=== PATIENT | female | born 1985 | race Caucasian/White ===

== ENCOUNTER 2017-09-11 11:18 | Observation (INO) | payer OTHER, MEDICAID, SELFPAY ==
--- NOTE | 2017-09-11 12:06 | PM.OBTRLD ---
Visit Information Visit Information Date of evaluation: 09/11/17 Primary OB Provider: Carol Alvarez On-call OB Provider: Cherie Zimmer Reason for Evaluation: Yes non-stress test Vital Signs Vital Signs: Blood pressure 102/51, pulse is 76, temperature 36.5? PFSH Social History marital status: household members: spouse Smoking Status: Former smoker alcohol intake: never substance use type: does not use Review of Systems Review of Systems Patient complaining of headache and blurred vision Evaluation Evaluation Baseline heart rate: 150 Variability: Moderate (11-25) monitor accelerations: Present monitor decelerations: Absent Contraction Frequency (minutes): 0 Category of Tracing: I Diagnosis, Plan/Disposition Final Diagnosis (1) headache in third trimester: Current Visit: Yes Status: Acute Plan/Disposition Plan: Patient was sent to Labor and delivery for blood pressure check due to complaints of headache and blurry vision. Patient's blood pressure is not elevated. She was advised to take Tylenol and push fluids. She has an appointment scheduled tomorrow with Dr. Alvarez
== END 2017-09-11 12:00 | disposition home or self-care (01) ==
LOC: LABOR 11:22
PROVIDERS: Admitting Provider Family Medicine; PCP Family Medicine; Visit Provider Family Medicine
DX: Z34.83 Encounter for supervision of other normal pregnancy, third trimester (principal); Z3A.36 36 weeks gestation of pregnancy; R51 Headache
CPT/HCPCS: 59025; G0378; G0379

== ENCOUNTER → 2017-09-12 14:51 | Outpatient (CLI) | payer OTHER, MEDICAID, SELFPAY ==
[2017-09-12 18:14] LABS: Strep Grp A by PCR Rapid Negative
== END ==
PROVIDERS: PCP Family Medicine; Visit Provider Family Medicine
DX: Z3A.36 36 weeks gestation of pregnancy (principal)
CPT/HCPCS: 87651

== ENCOUNTER → 2017-09-15 16:57 | Outpatient (CLI) | payer OTHER, MEDICAID, SELFPAY | END | disposition home or self-care (01) | LOC: LABOR 17:05 → OB 09-16 11:40 | PROVIDERS: PCP Family Medicine; Visit Provider Family Medicine | DX: O36.8130 Decreased fetal movements, third trimester, not applicable or unspecified (principal); Z3A.37 37 weeks gestation of pregnancy | CPT/HCPCS: 59025; G0378; G0379 ==

== ENCOUNTER → 2017-09-18 23:40 | Outpatient (CLI) | payer OTHER, MEDICAID, SELFPAY | END | disposition home or self-care (01) | LOC: LABOR 23:48 → OB 09-19 10:24 | PROVIDERS: PCP Family Medicine; Visit Provider Family Medicine | DX: Z34.83 Encounter for supervision of other normal pregnancy, third trimester (principal); Z3A.37 37 weeks gestation of pregnancy | CPT/HCPCS: 59025; G0378; G0379 ==

== ENCOUNTER 2017-09-26 01:55 | Inpatient (IN) | payer OTHER, MEDICAID, SELFPAY ==
[2017-09-26] VITALS (11 sets, daily range): BP systolic 123–136; BP diastolic 72–84; PULSE 101–114; RESP 14–22; TEMP 37.7; O2SAT 95–96
[2017-09-26] MEDS: LACTATED RINGERS 1,000 ML 100 ML IV ×2 (04:51→15:00)
[2017-09-26 05:04] LABS: Add Manual Diff / Slide Review NO; Basophils Percent Auto 0.4 % (0-2); Eosinophils Percent Auto 0.6 % (2-4); Hematocrit 39.7 % (36-46); Hemoglobin 13.5 g/dL (12.0-16.0); Lymphocytes Percent Auto 26.5 % (25-40); Mean Corpuscular HGB Conc 33.9 % (30-36); Mean Corpuscular Hemoglobin 30.3 PG (26-34); Mean Corpuscular Volume 89.6 fL (80-100); Monocytes Percent Auto 7.5 % (3-14); Neutrophils Absolute Auto 7200 /uL (3000-5900); Platelet Count 187 X10^3/uL (150-400); Red Blood Cell Count 4.44 X10^6/uL (4.0-5.2); Red Cell Distribution Width 13.1 % (11.6-14.8); White Blood Cell Count 11.1 X10^3/uL (4.5-11.0)
--- NOTE | 2017-09-26 07:51 | PM.OBHP.1 ---
OB HPI Date/Time Date of admission: 09/26/17 Date Patient Seen: 09/26/17 Time Patient Seen: 07:14 History of Present Illness Chief complaint: LABOR & DELIVERY : 7 Para: 2 Estimated Date of Delivery: 10/06/17 Estimated Gestational Age (weeks): 38w4d Narrative: Candelaria Simental is a 32 year old female, , admitted with ROM at 1 AM on 09/26/17. Received regular care. Saw MFM during due to prior with severe brain malformation. No concerns this . History of Present care: good care Dating criteria: based on 1st trimester US only Ultrasounds: normal 1st trimester US Obstetrical complications: none Medical complications: none Preadmission Labs Blood type: A (+) positive -: Antibody screen: negative, GBS status: negative, HBsAG: negative, HIV: negative and RPR/VDLR: negative -: Chlamydia screen: not detected and Gonorrhea screen: not detected -: Rubella: immune and Varicella: immune HCT: 36.8 HCAB: negative Integrated screen: Quad screen: Normal 1 hr GTT: 119 Prior (ies) History: 2003 TAB 10/08/17 , 38 wks, male, 7#10oz 2006 SAB 10/27/08 , 25 wks, male, severe brain malformation, 12/31/09 37 wks, male, 7#7oz Evaluation Evaluation Baseline heart rate: 140 Variability: Moderate (11-25) monitor accelerations: Present monitor decelerations: Absent Contraction Frequency (minutes): 4 Category of Tracing: I Cervical dilation (cm): 9 Cervical effacement (%): 100 station: 0 Laboratory results: Laboratory Tests 09/26/17 09/26/17 03:30 03:30 WBC 11.1 H RBC 4.44 Hgb 13.5 Hct 39.7 MCV 89.6 MCH 30.3 MCHC 33.9 RDW 13.1 Plt Count 187 Neut % (Auto) 65.0 Lymph % (Auto) 26.5 [place] % (Auto) 7.5 Eos % (Auto) 0.6 L Baso % (Auto) 0.4 Neut # (Auto) 7200 H Blood Type A Positive Antibody Screen Negative Non-invasive Membranes Rupture Test: positive PFS Medical History Chicken pox (Acute) Surgical History S/P appendectomy (Resolved) Social History marital status: household members: spouse Smoking Status: Former smoker alcohol intake: never substance use type: does not use Meds Home Medications Medication Instructions Recorded Confirmed Type 1 tab PO DAILY 09/26/17 09/26/17 History Zyrtec 10 mg PO DAILY 09/26/17 09/26/17 History ranitidine HCl 75 mg PO DAILY 09/26/17 09/26/17 History Allergies Allergy/AdvReac Type Severity Reaction Status Date / Time hydrocodone Allergy Intermediate Vomiting Verified 09/26/17 03:36 Review of Systems Review of Systems All systems reviewed & are unremarkable except as noted in HPI and below Exam Const General: cooperative and healthy appearing HENKY Head: normal to inspection Ears: hearing grossly normal bilaterally Nose: external nose normal Face and sinus: normal facial exam Mouth: oral mucosae normal Teeth and gingiva: dentition normal Throat: posterior oropharynx normal Eyes General: appearance normal, both eyes and all related structures Neck Neck: normal visual inspection Thyroid: thyroid normal Resp Effort & Inspection: normal respiratory effort Auscultation: clear to auscultation bilaterally Cardio Rate: regular rate Rhythm: regular rhythm Heart Sounds: no murmurs Estimated Weight (lbs): 8 Amniotic Fluid: clear Extrem General: normal to inspection and edema (1+ bilaterally) Objective Labs Result Diagrams: 09/26/17 03:30 Labs: Laboratory Results - last 24 hr 09/26/17 09/26/17 03:30 03:30 WBC 11.1 H RBC 4.44 Hgb 13.5 Hct 39.7 MCV 89.6 MCH 30.3 MCHC 33.9 RDW 13.1 Plt Count 187 Neut % (Auto) 65.0 Lymph % (Auto) 26.5 [place] % (Auto) 7.5 Eos % (Auto) 0.6 L Baso % (Auto) 0.4 Neut # (Auto) 7200 H Blood Type A Positive Antibody Screen Negative Assessment and Plan (1) 38 weeks gestation of : Current visit: Yes Status: Acute Plan: Plan: 32 year old at 38+4 weeks with ROM in active labor. GBS negative. Anticipate vaginal delivery Epidural pain control
--- NOTE | 2017-09-26 11:26 | PM.OBPNLAB ---
Date/Time Date Patient Seen: 09/26/17 Time Patient Seen: 11:26 Pain Control Pain control: tolerating well Pelvic Exam Dilation (cm): 9 Effacement (%): 100 station: +1 Amniotic membrane status: Ruptured Contractions Contraction frequency (min): 2 Status status: Category ll Heart Rate Baseline: 150 Monitor Accelerations: Present Monitor Decelerations: Variable Monitor Variability: Minimal Assessment and Plan Assessment: active labor Plan: Comments: Patient pushed for 1.5 hours with little descent. Bedside ultrasound performed to check position and appeared left occiput transverse. Epidural re-dosed for patient comfort and attempts made at pushing but with no descent. Dr. Zimmer was consulted and attempted vacuum extraction. There was no descent after three attempts with the vacuum so the decision was made for primary low transverse section. Risks discussed with patient including bleeding, infection, potential injury to surrounding organs. Consent signed in chart. Will give cefazolin 2 grams prior to surgery.
--- NOTE | 2017-09-26 11:51 | PM.CN ---
History of Present Illness Date Patient Seen: 09/26/17 Time Patient Seen: 11:31 Chief complaint: LABOR & DELIVERY Reason for consult: Failure to descend with pushing Requesting provider: Carol Alvarez Narrative: Was asked to consult for a multiparous patient who has been complete since 08:30 this morning. She does not have good descent with pushing. She has an epidural catheter that is in place. [facility] Medical History Chicken pox (Acute) Surgical History S/P appendectomy (Resolved) Social History marital status: household members: spouse Smoking Status: Former smoker alcohol intake: never substance use type: does not use Meds Home Medications Medication Instructions Recorded Confirmed Type 1 tab PO DAILY 09/26/17 09/26/17 History Zyrtec 10 mg PO DAILY 09/26/17 09/26/17 History ranitidine HCl 75 mg PO DAILY 09/26/17 09/26/17 History Allergies Allergy/AdvReac Type Severity Reaction Status Date / Time hydrocodone Allergy Intermediate Vomiting Verified 09/26/17 03:36 Exam Narrative Exam Narrative: Patient is completely dilated with asynclitic, transverse position of the head. heart tones reassuring category 1 Discussed options with the patient and decision was made to try a with a vacuum extraction. Vacuum was placed for total 3 pushes with no significant change in the position. Decision was made to proceed with section. Objective Labs Result Diagrams: 09/26/17 03:30 Labs: Laboratory Results - last 24 hr 09/26/17 09/26/17 03:30 03:30 WBC 11.1 H RBC 4.44 Hgb 13.5 Hct 39.7 MCV 89.6 MCH 30.3 MCHC 33.9 RDW 13.1 Plt Count 187 Neut % (Auto) 65.0 Lymph % (Auto) 26.5 [place] % (Auto) 7.5 Eos % (Auto) 0.6 L Baso % (Auto) 0.4 Neut # (Auto) 7200 H Blood Type A Positive Antibody Screen Negative Assessment & Plan (1) Failure of descent in labor, delivered, current hospitalization: Current visit: Yes Status: Acute (2) 38 weeks gestation of : Current visit: Yes Status: Acute Plan: Assessment/Plan Narrative: Failure to descend with an ability to bring the head down with forceps plan is to proceed with section
[2017-09-26] MEDS: CEFAZOLIN 2 GM/100 ML FROZ.PIGGY IV (11:55)
--- NOTE | 2017-09-26 12:29 | SUR.OPER ---
Supine on Padded OR bed, head on pillow, safety belt at thigh, arms secured on padded arm boards at <90 degrees abduction. Bump under right buttock. Legs uncrossed with pillow under knees, gel pad to heels, tape over blanket to lower legs.
--- NOTE | 2017-09-26 12:31 | SUR.OPER ---
PLACENTA AND CORD BLOOD TUBES X 2 SENT WITH OB KARI. Alex DOMINGUEZ.RN
--- NOTE | 2017-09-26 12:44 | SUR.OPER ---
VIABLE MALE INFANT BORN AT 1234
[2017-09-26] MEDS: ACETAMINOPHEN IV 1,000 MG/100 ML VIAL 400 MG IV (13:08)
[2017-09-26] MEDS: HYDROMORPHONE 2 MG INJ 0.5 MG IV ×4 (13:35→14:05)
--- NOTE | 2017-09-26 13:41 | PM.OP.1 ---
Operative Date/Time/Diagnoses Date of procedure: 09/26/17 Time of procedure: 12:30 Pre-op diagnosis: 38 weeks of Arrest of second stage of labor Post-op diagnosis: same Procedure & Clinicians Procedure: Primary low-transverse section Same procedure as scheduled: Yes Indications: Arrest of second stage of labor Thirty-eight weeks of Surgeon: Carol Alvarez Camp Advisor: Cherie Zimmer Anesthesia Type: General and Spinal (Epidural was found to be inadequate so spinal performed, spinal was not adequate during surgery so patient given general anesthesia) Operative Notes Findings: Live male Normal uterus, fallopian tubes and ovaries Closure Type: primary Specimen(s): other (Cord blood) Implants & Drains: Nguyen to continuous drainage Estimated Blood Loss (mL): 1,000 Procedure in detail: The patient was taken to the operating room. Epidural was felt to be inadequate so she was placed in the seated position and spinal anesthesia administered. She was then placed in the dorsal supine position with a leftward tilt. She was prepped and draped in the usual sterile fashion. A timeout was performed. After spinal analgesia was found to be adequate, a Pfannenstiel skin incision was made 2 finger breadths above the pubic symphysis and carried through to the underlying layer fascia. The fascia was nicked in the midline and the incision extended bilaterally with the Novak scissors. The superior aspect of the fascial incision was grasped with Francesco clamps, elevated, and the underlying rectus muscles dissected off sharply and bluntly. Attention was then turned to the inferior aspect of this incision which in a similar fashion was grasped with a Francesco clamps, elevated, and the underlying rectus muscles dissected off sharply and bluntly. The rectus muscles were in the midline. The peritoneum was identified, grasped between 2 hemostats, and entered sharply with the Metzenbaum scissors. This incision was extended superiorly and inferiorly with good visualization of the bladder. The bladder blade was inserted. The vesicouterine peritoneum was identified, grasped with the pickup, and entered sharply with the Metzenbaum scissors. This incision was extended bilaterally and the bladder flap was created digitally. The bladder blade was reinserted. The lower uterine segment was incised in a transverse fashion with the scalpel. Upon entering the amniotic sac there was a small amount of clear amniotic fluid. was found to be in the direct occiput posterior position. The 's head was delivered. The nose and mouth were suctioned with bulb suction. The remainder of the body delivered without difficulty. The cord was double clamped and cut. The was handed off to waiting RN and RT. The placenta was delivered manually. The uterus was cleared of all clots and debris. The uterine incision was repaired with #1 chromic in a running interlocking fashion and a second layer of the same suture was used for an imbricating layer. Hemostasis was achieved. The tubes and ovaries were examined and were found to be normal. The gutters were cleared of all clots and debris. The bladder flap was reapproximated using 2-0 Vicryl in a running fashion. The parietal peritoneum was closed using 2-0 Vicryl in a running fashion. The fascia was reapproximated using #1 Vicryl in a running fashion. Subcutaneous layer was copiously irrigated with warm normal saline. 3 simple interrupted sutures of 3-0 Vicryl were placed to reapproximate the subcutaneous layer. The skin was closed with 4-0 undyed Vicryl in a subcuticular fashion. Steri-Strips were placed. An Aquacel dressing was placed. The uterus was expressed of a small amount of old blood. Sponge, lap, and instrument counts were correct. The patient tolerated the procedure well, and was taken to PACU in stable condition. Complications: other (Patient did not have an adequate anesthesia part way through surgery so was put under general anesthesia after delivery of the ) Condition: stable Disposition: PACU
--- NOTE | 2017-09-26 14:12 | SUR.PHASEI ---
PT IS SLEEPING QUIETLY, EASILY WAKENS, ABDOMEN IIS SOFT, DRESSING WITH 1 SMALL PEA SIZE SPOT OF DRAINAGE, ALESSANDRA PAD REMAINS CLEAN AND DRY, FUNDUS 1 FINGER ABOVE UMBILICUS AND FIRM. REPORT TO KARI SUMNER.
[2017-09-26] MEDS: OXYCODONE/ACETAMINOPHEN 5/325 TABLET 1 TAB PO (18:40)
[2017-09-26] MEDS: KETOROLAC 30 MG/ML VIAL IV (19:20)
[2017-09-26] MEDS: OXYCODONE/ACETAMINOPHEN 5/325 TABLET 2 TAB PO (23:00)
[2017-09-27] MEDS: LACTATED RINGERS 1,000 ML 100 ML IV (00:20)
[2017-09-27] MEDS: KETOROLAC 30 MG/ML VIAL IV ×2 (01:30→07:57)
[2017-09-27] MEDS: OXYCODONE/ACETAMINOPHEN 5/325 TABLET 2 TAB PO ×5 (04:08→21:02)
[2017-09-27] MEDS: DOCUSATE 250 MG CAPSULE PO (07:57)
--- NOTE | 2017-09-27 09:59 | PM.OBPN.1 ---
Subjective - OB Interval history: Patient reports she is quite sore this morning but overall doing well. She has burning pain over her incision and soreness throughout her abdomen. Vaginal bleeding is light. Catheter was removed this morning and she has urinated spontaneously. No issues ambulating. Looking forward taking a shower this morning. initiated however she reports some pain with latching. Denies fevers, chills or shortness of breath. baby status: doing well feeding status: exclusively breast feeding Exam Vital Signs (past 8 hours): Oxygen Delivery Method Room Air Temperature 99.0?, blood pressure 100/51, heart rate 86, respirations 16 Narrative Exam Narrative: General: Awake and alert, no acute distress. HEENT: NCAT, EOMI, moist oral mucosa CV: Regular rate and rhythm, no murmurs, rubs or gallops Lungs: CTAB, no wheezes, rales, or rhonchi Abdomen: Soft, nontender; bowel tones active; uterus firm 1 cm below umbilicus; Aquacel dressing clean and dry Extremities: Warm, trace edema bilaterally, 2+ pedal pulses bilaterally Objective Labs Result Diagrams: 09/26/17 03:30 Assessment & Plan (1) Status post section: Start date: 09/26/17 Status: Acute Current Visit: Yes (2) Failure of descent in labor, delivered, current hospitalization: Status: Acute Current Visit: Yes (3) 38 weeks gestation of : Status: Acute Current Visit: Yes Plan day: 1 plan OB: routine postop care Comments: day one after primary low transverse section for arrest of second stage of labor. Doing well. Pain well controlled with Toradol and oxycodone. Breast-feeding support given painful latch. Anticipate discharge home tomorrow. Time Spent With Patient Total time spent is greater than 50% in coordination of care (as documented) at patient's floor/unit and/or counseling patient: less than 15 minutes
[2017-09-27] MEDS: IBUPROFEN 600 MG TABLET PO ×2 (13:58→20:01)
[2017-09-27 17:52] LABS: Hematocrit 25.5 % (36-46); Hemoglobin 8.6 g/dL (12.0-16.0)
[2017-09-28] MEDS: OXYCODONE/ACETAMINOPHEN 5/325 TABLET 2 TAB PO ×5 (01:12→22:39)
[2017-09-28] MEDS: IBUPROFEN 600 MG TABLET PO ×4 (02:26→21:37)
[2017-09-28 09:36] LABS: Hematocrit 25.9 % (36-46); Hemoglobin 8.7 g/dL (12.0-16.0)
--- NOTE | 2017-09-28 09:56 | P.PNOB_ITS ---
Subjective - OB Interval history: Feeling better this morning, got some sleep last night. Breast feeding is going better, latch improvement. Bleeding is light. Pain well- controlled with ibuprofen and occasional Percocet. Ambulating, eating and passing gas. Would like to go home today however needs to stay for phototherapy. Exam Vital Signs (past 8 hours): Oxygen Delivery Method Room Air Temperature 98.7?, blood pressure 114/64 heart rate 86 respirations 18 General: Awake and alert, no acute distress. HEENT: NCAT, EOMI, moist oral mucosa CV: Regular rate and rhythm, no murmurs, rubs or gallops Lungs: CTAB, no wheezes, rales, or rhonchi Abdomen: Soft, slight tenderness throughout; bowel tones active; uterus firm 1 cm below umbilicus; bandage clean and dry with serosanguineous drainage Extremities: Warm, trace edema, 2+ pedal pulses bilaterally Objective Labs Result Diagrams: 09/28/17 09:20 Labs: Laboratory Results - last 24 hr 09/27/17 09/28/17 17:20 09:20 Hgb 8.6 L 8.7 L Hct 25.5 L 25.9 L Assessment & Plan (1) Status post section: Status: Acute Current Visit: Yes (2) Failure of descent in labor, delivered, current hospitalization: Status: Acute Current Visit: Yes (3) 38 weeks gestation of : Status: Acute Current Visit: Yes Plan day: 2 plan OB: routine care and routine postop care Comments: Doing well . Will start iron given significant postop anemia. Patient is asymptomatic. Hopefully will discharge home tomorrow if is fit for discharge after phototherapy. Time Spent With Patient Total time spent is greater than 50% in coordination of care (as documented) at patient's floor/unit and/or counseling patient: less than 15 minutes
[2017-09-28] MEDS: FERROUS GLUCONATE 324 MG TABLET PO (18:06)
[2017-09-29] MEDS: OXYCODONE/ACETAMINOPHEN 5/325 TABLET 2 TAB PO ×2 (02:39→08:25)
[2017-09-29] MEDS: IBUPROFEN 600 MG TABLET PO ×2 (03:35→10:12)
[2017-09-29] MEDS: FERROUS GLUCONATE 324 MG TABLET PO (08:25)
[2017-09-29] MEDS: DOCUSATE 250 MG CAPSULE PO (08:25)
[2017-09-29 10:58] VITALS: BP 111/71; PULSE 84; RESP 16; TEMP 37.1
--- NOTE | 2017-09-29 11:03 | P.DS_ITS ---
Discharge Providers Date of admission: 09/26/17 01:55 Primary care physician: Carol Alvarez DO Consults: 09/26/17 14:13 Consult to Farm Product Purchaser Routine Comment: Discharge provider: Carol Alvarez DO Summary Date Patient Seen: 09/29/17 Time Patient Seen: 09:00 Hospital Course: Patient is a 32-year-old now 3 who delivered at 38+4 weeks gestation via primary for second-stage arrest of labor. Patient presented to the center with spontaneous rupture of membranes and progressed spontaneously into active labor. Patient became complete and pushed for [address] Zimmer with obstetrics was consulted and attempted vacuum extraction however vacuum was unsuccessful so patient was taken for . Upon delivery was found to be in the direct occiput posterior position. weight 9 lb 11 oz. Postop patient was found to be anemic though not symptomatic and started on iron replacement. Pain was well controlled with ibuprofen and Percocet. Bleeding was reportedly light at the time of discharge. Patient was able to ambulate without difficulty. There was some difficulty with breast-feeding until infant underwent frenotomy. Patient counseled to call for fevers, bleeding through more than a pad an hour or excessive pain. She will return to clinic in one week for dressing removal and wound check. Exam Temperature 99.3?, blood pressure 105/60, heart rate 85, respirations 16 General: Awake and alert, no acute distress. HEENT: NCAT, EOMI, moist oral mucosa CV: Regular rate and rhythm, no murmurs, rubs or gallops Lungs: CTAB, no wheezes, rales, or rhonchi Abdomen: Soft, nontender; bowel tones active; uterus firm 1 cm below umbilicus. Bandage clean and dry with old serosanguineous drainage. Extremities: Warm, 1+ edema bilaterally, 2+ pedal pulses bilaterally Peripartum Data Infant Delivery Method: Section complications: none Discharge Diagnosis (1) Status post section: Status: Acute (2) Failure of descent in labor, delivered, current hospitalization: Status: Acute (3) 38 weeks gestation of : Status: Acute Status at Discharge Functional status at discharge: independent ambulation Overall status at discharge: patient is progressing back to baseline Time Spent with Patient Total time spent providing and/or coordinating discharge services: Less than 30 minutes Objective Labs Result Diagrams: 09/28/17 09:20 Discharge Plan Discharge Plan Patient Disposition: Home, Self-Care Discharge Med Rec/Prescriptions Prescriptions: New docusate sodium 250 mg Capsule 250 mg PO BID Qty: 30 RF: 0 ferrous gluconate 324 mg (38 mg iron) Tablet 324 mg PO DAILY Qty: 30 RF: 0 ibuprofen 600 mg Tablet 600 mg PO Q6HR PRN (Reason: As Needed For Fever/Mild Pain) Qty: 30 RF: 0 oxycodone-acetaminophen 5-325 mg Tablet 1 tab PO Q4HR PRN (Reason: Pain, Moderate (4-6)) Qty: 20 RF: 0 Continue 1 tab tablet 1 tab PO DAILY RF: 0 Zyrtec 1 tab tablet 10 mg PO DAILY RF: 0 ranitidine HCl 75 mg tablet 75 mg PO DAILY RF: 0 Follow up/Referrals: Carol Alvarez DO [Primary Care Provider] - 1 Week (Follow up with Dr. Alvarez at [facility] on @ 10:15AM .) Provider Discharge Instructions Diet: Regular Visit Report/Discharge Packet Instructions: DI for Stand Alone Forms: Discharge: Care Visit Report Forms: Stroke Signs & Symptoms Discharge Data Primary Care Provider: Carol Alvarez Attending Provider: Carol Alvarez Admit Date/Time: 09/26/17 01:55
== END 2017-09-29 16:05 | disposition home or self-care (01) | DRG 540 ==
PROVIDERS: Admitting Provider Family Medicine; PCP Family Medicine; Visit Provider Family Medicine
PROC: 10D00Z1 Extraction of Products of Conception, Low, Open Approach (ICD-10-PCS; CPT 59514; principal; 2017-09-26 16:45)
DX: O64.0XX0 Obstructed labor due to incomplete rotation of fetal head, not applicable or unspecified (principal); O62.1 Secondary uterine inertia; Z3A.38 38 weeks gestation of pregnancy; Z37.0 Single live birth; D64.9 Anemia, unspecified; O66.5 Attempted application of vacuum extractor and forceps
CPT/HCPCS: 01967; 01968; 36415; 59050; 59514; 85014; 85018; 85025; 86850; 86900; 86901; G0379; J0131; J0690; J1170; J1885; J2250; J2274; J3010

== ENCOUNTER → 2018-08-24 12:42 | Outpatient (CLI) | payer OTHER, MEDICAID, SELFPAY ==
--- NOTE | 2018-08-24 12:44 | DI.RAD.S_ITS ---
PROCEDURE: XR CHEST 2V INDICATIONS: Chest pain TECHNIQUE: 2 views of the chest were acquired. COMPARISON: None. FINDINGS: Surgical changes and devices: None Lungs and pleura: Lungs are clear. No pleural effusions or pneumothorax. Mediastinum: Mediastinal contours are normal. Heart size is normal. Bones and chest wall: No suspicious bony abnormalities. Soft tissues appear unremarkable. IMPRESSION: No acute disease Dictated by: Bertin Gutiérrez M.D. on 08/24/2018 at 13:08 Approved by: Bertin Gutiérrez M.D. on 08/24/2018 at 13:10
== END ==
PROVIDERS: PCP Family Medicine; Visit Provider Registered Nurse
DX: R07.9 Chest pain, unspecified (principal)
CPT/HCPCS: 71046

== ENCOUNTER → 2018-09-18 09:45 | Outpatient (CLI) | payer OTHER, MEDICAID, SELFPAY ==
[2018-09-18 11:06] LABS: HIV 1 & 2 Ab/Ag 4th Gen Combo NEGATIVE (NEGATIVE)
[2018-09-20 13:53] LABS: RPR Screen Nonreactive (Nonreactive)
[2018-09-20 15:17] LABS: Hepatitis A Antibody IgM NONREACTIVE (NONREACTIVE); Hepatitis Acute Panel Interp 0.01; Hepatitis B Core Antibody IgM NONREACTIVE (NONREACTIVE); Hepatitis B Surface Antigen NONREACTIVE (NONREACTIVE); Hepatitis C Antibody NONREACTIVE
== END ==
PROVIDERS: PCP Family Medicine; Visit Provider Registered Nurse
DX: Z11.3 Encounter for screening for infections with a predominantly sexual mode of transmission (principal)
CPT/HCPCS: 36415; 80074; 86592; 87389

== ENCOUNTER → 2020-04-29 11:37 | Outpatient (CLI) | payer OTHER, SELFPAY ==
[2020-04-30 12:13] LABS: Mumps Virus IgG Antibody 65.7 AU/mL (Immune >10.9); Rubeola Measles IgG 43.7 AU/mL (Immune >16.4); Varicella IgG Antibody 854 index (Immune >165)
== END ==
PROVIDERS: PCP Family Medicine; Referring Provider Family Medicine; Visit Provider Family Medicine
DX: Z01.84 Encounter for antibody response examination (principal)
CPT/HCPCS: 36415; 86735; 86762; 86765; 86787